=== PATIENT | female | born 1990 | race African-American/Black ===

== ENCOUNTER 2018-09-12 12:52 | Emergency (ER) | payer OTHER ==
[~2018-09-12] VITALS: Ht 175.3 cm; Wt 63.0 kg
[~2018-09-12 12:52] MED LIST: ACETAMINOPHEN-120 ML PO; AMOXICILLIN 50500 M1 PO; APAP/CODEINE ELI5 M1 OR; CIPROFLOXACIN500 M1 PO; FLONASE 0.05%50 MCG NASAL; NORCO 5-325 TA1 EACH PO; PEPCID AC20 M1 PO; PEPCID20 MG PO; PHENERGAN 25 MG25 M1 PO; PREVACID 30MG C30 M1 PO; VALTREX 500 MG500 M1 PO; ZOFRAN ODT4 MG PO
[2018-09-12 13:13] LABS: URINE BLOOD 2+ (Negative); URINE CLARITY CLEAR; URINE COLOR YELLOW; URINE GLUCOSE-RANDOM* NEGATIVE (Negative); URINE KETONES 2+ (Negative); URINE LEUKOCYTES-REFLEX NEGATIVE (Negative); URINE NITRITE-REFLEX NEGATIVE (Negative); URINE PROTEIN (DIPSTICK) TRACE (Negative); URINE SPECIFIC GRAVITY 1.025 (1.005-1.035); URINE UROBILINOGEN 0.2 E.U./dl (0.2-1.0)
[2018-09-12 13:15] LABS: ICTOTEST (BILI CONFIRMATORY) Negative (Negative); URINE BILIRUBIN NEGATIVE (Negative)
[2018-09-12 13:19] VITALS: BP 118/72
[2018-09-12 13:23] LABS: CASTS None Seen /LPF (None Seen); SQUAMOUS 0-3 Few /LPF (0-3)
[2018-09-12 13:24] LABS: BACTERIA-REFLEX None Seen /HPF (None Seen); CRYSTALS None Seen /LPF (None Seen); URINE RBC 3-10 Few /HPF (0-2); URINE WBC-REFLEX None Seen /HPF (0-5)
[2018-09-12] MEDS ORDERED: IBUPROFEN 600600 M1 PO (13:43)
[2018-09-12] MEDS ORDERED: FLONASE 0.05%50 MCG NASAL (13:43)
[2018-09-12] MEDS ORDERED: SUDOGEST30 MG PO (13:43)
== END 2018-09-12 13:54 | disposition home or self-care (01) ==
LOC: ER 12:52
PROVIDERS: Physician Assistant
DX: J06.9 Acute upper respiratory infection, unspecified (principal); R51 Headache; Z88.6 Allergy status to analgesic agent

== ENCOUNTER 2018-09-14 04:47 | Emergency (ER) | payer OTHER ==
[~2018-09-14] VITALS: Ht 175.3 cm; Wt 63.0 kg
[~2018-09-14 04:47] MED LIST changes: +IBUPROFEN 600600 M1 PO; +SUDOGEST30 MG PO
[2018-09-14 05:43] LABS: ABSOLUTE NEUTROPHILS 7.8 thou/uL (1.4-8.2); BASOPHILS 0.2 % (0.0-2.0); HEMATOCRIT 37.3 % (37.0-47.0); HEMOGLOBIN 12.4 gm/dL (12.0-15.0); LYMPHOCYTES 3.3 % (24.0-44.0); MCH 27.7 pg (26.0-34.0); MCHC 33.3 g/dL (28.0-37.0); MCV 83.3 fL (80.0-100.0); MONOCYTES 9.2 % (1.0-8.0); PLATELET COUNT 214 thou/uL (150-400); POLYS 87.3 % (36.0-66.0); RBC 4.47 mil/uL (4.20-5.00); RDW 13.5 % (10.5-14.5); WBC 8.9 thou/uL (4.0-11.0)
[2018-09-14 05:54] LABS: CALCIUM 9.3 mg/dL (8.5-10.1); CREATININE 0.8 mg/dL (0.6-1.0); POTASSIUM 3.5 mmol/L (3.5-5.1)
[2018-09-14 06:54] VITALS: BP 125/66
[2018-09-15] MEDS ORDERED: BUTALB-APAP-CA1 EACH PO (07:46)
[2018-09-15] MEDS ORDERED: AMOXICILLIN875 MG PO (07:46)
== END 2018-09-14 06:50 | disposition home or self-care (01) ==
LOC: ER 04:47
PROVIDERS: Emergency Medicine
DX: R50.9 Fever, unspecified (principal); R51 Headache; M54.2 Cervicalgia; R11.10 Vomiting, unspecified; R09.81 Nasal congestion; Z88.6 Allergy status to analgesic agent

== ENCOUNTER 2018-09-15 06:13 | Emergency (ER) | payer OTHER ==
[~2018-09-15] VITALS: Ht 180.3 cm; Wt 59.0 kg
[2018-09-15 06:49] LABS: ABSOLUTE NEUTROPHILS 4.5 thou/uL (1.4-8.2); BASOPHILS 0.7 % (0.0-2.0); EOSINOPHILS 0.2 % (0.0-3.0); HEMATOCRIT 36.3 % (37.0-47.0); HEMOGLOBIN 11.9 gm/dL (12.0-15.0); LYMPHOCYTES 7.9 % (24.0-44.0); MCH 27.4 pg (26.0-34.0); MCHC 32.6 g/dL (28.0-37.0); MONOCYTES 11.1 % (1.0-8.0); PLATELET COUNT 227 thou/uL (150-400); POLYS 80.1 % (36.0-66.0); RBC 4.32 mil/uL (4.20-5.00); RDW 13.3 % (10.5-14.5); WBC 5.7 thou/uL (4.0-11.0)
[2018-09-15 06:57] LABS: CALCIUM 8.8 mg/dL (8.5-10.1); CREATININE 0.8 mg/dL (0.6-1.0); POTASSIUM 3.1 mmol/L (3.5-5.1)
[2018-09-15] MEDS ORDERED: AMOXICILLIN875 MG PO (07:46)
[2018-09-15] MEDS ORDERED: BUTALB-APAP-CA1 EACH PO (07:46)
[2018-09-15 08:18] VITALS: BP 129/78
== END 2018-09-15 08:30 | disposition home or self-care (01) ==
LOC: ER 06:13
PROVIDERS: Student in an Organized Health Care Education/Training Program
DX: R51 Headache (principal); H66.93 Otitis media, unspecified, bilateral; B34.9 Viral infection, unspecified; Z88.6 Allergy status to analgesic agent

== ENCOUNTER 2018-09-16 19:07 | Emergency (ER) | payer OTHER ==
[~2018-09-16] VITALS: Ht 175.3 cm; Wt 63.0 kg
[~2018-09-16 19:07] MED LIST changes: +AMOXICILLIN875 MG PO; +BUTALB-APAP-CA1 EACH PO
[2018-09-16 21:32] LABS: CREATININE 0.6 mg/dL (0.6-1.0); POTASSIUM 3.3 mmol/L (3.5-5.1)
[2018-09-16 23:24] VITALS: BP 133/79
== END 2018-09-17 01:33 | disposition home or self-care (01) ==
LOC: ER 19:07
PROVIDERS: Emergency Medicine
DX: R51 Headache (principal); M54.2 Cervicalgia; K21.9 Gastro-esophageal reflux disease without esophagitis; Z87.19 Personal history of other diseases of the digestive system; Z88.8 Allergy status to other drugs, medicaments and biological substances

== ENCOUNTER 2020-08-09 06:46 | Emergency (ER) | payer BC ==
[~2020-08-09] VITALS: Ht 175.3 cm; Wt 107.0 kg
[2020-08-09 06:52] VITALS: BP 131/78
[2020-08-09] MEDS ORDERED: SPRINTEC1 EACH PO (07:00)
[2020-08-09] MEDS ORDERED: HYDROCHLOROTHIA25 M1 PO (07:01)
[2020-08-09] MEDS ORDERED: PEPCID20 MG PO (07:03)
[2020-08-09] MEDS ORDERED: IBUPROFEN 600600 M1 PO (07:38)
[2020-08-09] MEDS ORDERED: NORCO5 PO (07:38)
== END 2020-08-09 08:01 | disposition home or self-care (01) ==
LOC: ER 06:46
DX: S93.401A Sprain of unspecified ligament of right ankle, initial encounter (principal); Z79.899 Other long term (current) drug therapy; Z88.8 Allergy status to other drugs, medicaments and biological substances; X50.1XXA Overexertion from prolonged static or awkward postures, initial encounter; Y93.89 Activity, other specified; Y92.89 Other specified places as the place of occurrence of the external cause; Y99.8 Other external cause status

== ENCOUNTER 2020-10-29 07:26 | Emergency (ER) | payer BC ==
[~2020-10-29] VITALS: Ht 175.3 cm; Wt 112.0 kg
[~2020-10-29 07:26] MED LIST changes: +HYDROCHLOROTHIA25 M1 PO; +NORCO5 PO; +SPRINTEC1 EACH PO
[2020-10-29] MEDS ORDERED: VITAMIN B125000 MCG PO (07:30)
[2020-10-29] MEDS ORDERED: SPRINTEC (07:30)
[2020-10-29 09:56] VITALS: BP 144/86
== END 2020-10-29 09:56 | disposition home or self-care (01) ==
LOC: ER 07:26
DX: S93.692A Other sprain of left foot, initial encounter (principal); Z88.8 Allergy status to other drugs, medicaments and biological substances; W01.0XXA Fall on same level from slipping, tripping and stumbling without subsequent striking against object, initial encounter; Y93.89 Activity, other specified; Y92.89 Other specified places as the place of occurrence of the external cause; Y99.8 Other external cause status